=== PATIENT | male | born 1945 | race Caucasian/White ===

== ENCOUNTER 2024-10-17 09:36 | Emergency (ER) | payer MEDICARE ==
[~2024-10-17] VITALS: Ht 188 cm; Wt 82.0 kg
--- OUTSIDE RECORDS SUMMARY | ~2024-10-17 | XMS | Continuity of Care Document ---
Demographics + + + | Address | [address] | | | [place] [address] | + + + | Preferred Language | Unknown | + + + | Marital Status | | + + + | Sikhism Affiliation | Mormon Lutheran | + + + | Race | Unknown | + + + | Ethnic Group | Unknown | + + + Author + + + | Author | [facility] | + + + | Organization | [facility] | + + + | Address | [address] | | | [place] [address] | + + + | Phone | | + + + Care Team Providers + + + + | Care Meteorologist Liaison Name | Role | Phone | + + + + Unavailable | Unavailable | + + + + Allergies No information. Encounters No information. Functional Status No information. Immunizations No information. Medications No information. 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 | | | | (HCC) | | + + + + | 2024-07-20 08:15:44 | Presence of automatic | Teresita Nune[facility] | | | (implantable) cardiac | [facility] | | | defibrillator | | + + + + | 2024-07-20 08:16:56 | Hyperlipidemia, | Teresita Nunez | | | unspecified | [facility] | + + + + | 2024-07-20 08:16:56 | Ventricular tachycardia, | Teresita Nunez | | | unspecified (HCC) | [facility] | + + + + | 2024-07-20 08:16:56 | Paroxysmal atrial | Teresita [facility] | | | fibrillation (HCC) | [facility] | + + + + | 2024-07-20 08:16:56 | 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 | | | | (HCC) | | + + + + | 2024-07-20 08:16:56 | Presence of automatic | [facility] | | | (implantable) cardiac | [facility] | | | defibrillator | | + + + + | 2024-08-10 07:33:57 | Hyperlipidemia, | Te[facility]ita [place] | | | unspecified | [facility] | + + + + | 2024-08-10 07:33:57 | Ventricular tachycardia, | [facility] [place] | | | unspecified ([facility]) | [facility] | + + + + | 2024-08-10 07:33:57 | Paroxysmal atrial | [facility] | | | fibrillation (HCC) | [facility] | + + + + | 2024-08-10 07:33:57 | 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 Results/Labs No information. Social History +--------+ + + | date | description | facility | +--------+ + + Vital Signs No information."
[~2024-10-17 09:36] MED LIST: ASPIR 8181 MG PO; CALTRATE 600+D1 EAC2 PO; CAPTOPRIL12.5 MG PO; CARVEDILOL3.125 MG PO; CLARITIN10 M2 PO; CO Q-10200 MG PO; ELIQUIS5 MG PO; FISH OIL 1,2001 EACH PO; FLOMAX0.4 MG PO; LOVASTATIN20 MG PO; MAGNESIUM400 MG PO; NORCO 10-325 T1 EACH PO; PRILOSEC OTC20 MG PO; PRILOSEC20 MG PO; PRINIVIL20 MG PO; PROBIOTIC1 EAC1 PO; PROSCAR5 MG PO; SOTALOL AF120 MG PO; STOOL SOFTENER100 MG PO; VITAMIN B122500 MCG PO; VITAMIN D32000 UNIT PO
[2024-10-17 09:59] LABS: BASOPHILS 0.6 % (0-2); EOSINOPHILS 0.7 % (0-6); HEMOGLOBIN 14.9 g/dL (12.0-18.0); MCH 32.2 (27-36); MCHC 33.2 g/dl (30-36); MONOCYTES 16.1 % (0-12); NEUTROPHILS 67.6 % (39-80); PLATELET COUNT 153 K/uL (140-440); RBC 4.64 M/ul (4.3-5.7); RDW 14.5 (10.5-15.0)
[2024-10-17] MEDS ORDERED: SODIUM CHLORIDE 0.9% 500 ML IV PRN (10:00)
[2024-10-17] MEDS ORDERED: propofoL 200 MG/20 ML VIAL IV ONE (10:15)
[2024-10-17 10:26] LABS: ALBUMIN 3.6 g/dL (3.4-5.0); ANION GAP 13.2 (7-21); BILIRUBIN, TOTAL 0.7 mg/dL (0.2-1.0); BUN/CREATININE RATIO 19.2 (6.0-28.6); CALCIUM 8.6 mg/dL (8.5-10.1); CREATININE, SERUM 1.25 mg/dL (0.70-1.30); MAGNESIUM 2.1 mg/dL (1.8-2.4); POTASSIUM 4.2 mmol/L (3.5-5.1); PROTEIN, TOTAL 7.2 g/dL (6.4-8.2)
[2024-10-17] MEDS ORDERED: [UNRECOGNIZED DRUG - OTHER] (11:48)
[2024-10-17] MEDS ORDERED: JARDIANCE10 MG (11:48)
[2024-10-17] MEDS ORDERED: ELIQUIS5 MG (11:48)
[2024-10-17] MEDS ORDERED: LIPITOR10 MG (11:49)
[2024-10-17] MEDS ORDERED: EPLERENONE25 MG (11:49)
[2024-10-17] MEDS ORDERED: PACERONE200 MG (11:50)
[2024-10-17] MEDS ORDERED: METOPROLOL SUCC25 MG (11:50)
[2024-10-17] MEDS ORDERED: VITAMIN C500 M1 (11:51)
[2024-10-17] MEDS ORDERED: GLUCOSAMINE CO1 EAC1 (11:51)
[2024-10-17 11:58] VITALS: BP 86/67
--- NOTE | 2024-10-18 12:22 | EKG ---
[facility] [address] [place] [address] Signed Sinus tachycardia with premature atrial complexes Right bundle branch block Marked T wave abnormality, consider inferolateral ischemia Abnormal ECG When compared with ECG of 09-MAR-2023 09:54, Sinus rhythm has replaced Electronic atrial pacemaker Vent. rate has increased BY 79 BPM Right bundle branch block has replaced Nonspecific intraventricular block Confirmed by Ron Diaz MD () on 10/18/2024 12:22:15 PM Electronically Signed By: RON DIAZ MD 10/18/24 1222 PATIENT NAME: WALT KULKARNI Electrocardiogram DATE OF : 47 PHYSICIAN: RON DIAZ MD REPORT #: [id number] REPORT IS CONFIDENTIAL AND NOT TO BE RELEASED WITHOUT AUTHORIZATION
--- NOTE | 2024-10-18 12:24 | EKG ---
[facility] [address] [place] [address] Signed AV dual-paced rhythm with occasional and consecutive premature ventricular complexes Abnormal ECG When compared with ECG of 17-OCT-2024 09:37, Electronic ventricular pacemaker has replaced Sinus rhythm Vent. rate has decreased BY 68 BPM Confirmed by Ron Diaz MD () on 10/18/2024 12:24:00 PM Electronically Signed By: RON DIAZ MD 10/18/24 1224 PATIENT NAME: WALT KULKARNI Electrocardiogram DATE OF : 47 PHYSICIAN: RON DIAZ MD REPORT #: [id number] REPORT IS CONFIDENTIAL AND NOT TO BE RELEASED WITHOUT AUTHORIZATION
== END 2024-10-17 12:03 | disposition home or self-care (01) ==
LOC: ED 09:36
PROVIDERS: Emergency Medicine
DX: I47.20 Ventricular tachycardia, unspecified (principal); I48.91 Unspecified atrial fibrillation; Z95.810 Presence of automatic (implantable) cardiac defibrillator; Z79.899 Other long term (current) drug therapy; Z79.01 Long term (current) use of anticoagulants
CPT/HCPCS: 36415; 80053; 83735; 83880; 84484; 85025; 92960; 93005; 93010; 94799; 99285-25; J2704; J7040